=== PATIENT | female | born 1955 | race Two or more races ===

== ENCOUNTER 2025-07-22 10:50 | Emergency (ER) | payer OTHER ==
[~2025-07-22] VITALS: Ht 160 cm; Wt 80.7 kg
[2025-07-22] MEDS ORDERED: ALBUTEROL SULFATE 3 ML/2.5 MG AMPUL.NEB IH SCH (11:30)
[2025-07-22] MEDS ORDERED: KETOROLAC TROMETHAMINE 15 MG VIAL IM ONE (11:30)
[2025-07-22] MEDS ORDERED: BENZONATATE 200 MG CAPSULE PO ONE (11:30)
[2025-07-22 15:03] LABS: COVID-19 AG NEGATIVE (NEGATIVE)
== END 2025-07-22 15:42 | disposition home or self-care (01) ==
LOC: ER 10:50
PROVIDERS: Emergency Medicine
DX: J45.901 Unspecified asthma with (acute) exacerbation (principal); E78.49 Other hyperlipidemia; Z88.8 Allergy status to other drugs, medicaments and biological substances; Z20.822 Contact with and (suspected) exposure to COVID-19
CPT/HCPCS: 36415; 71046; 94640; 96372; 99284; J1885